=== PATIENT | female | born 1950 | race Caucasian/White ===

== ENCOUNTER → 2016-11-26 | Outpatient (CLI) | payer OTHER ==
--- NOTE | 2016-11-26 09:36 | MA ---
Screening Digital Mammogram With Tomosynthesis and iCAD Indication: Routine screening. Personal history of left breast DCIS. Technique: Standard digital CC projections were obtained. Digital breast tomosynthesis was performed in the MLO projection with reconstruction at 1.0 mm slice thickness. Composite MLO views were recons tructed. [facility]. Comparison: November 2015, November 2014, November 2013, and August 2011 Breast density: Type B. Findings: CAD was reviewed. The focal asymmetry with questionable architectural distortion has develo ped in the upper outer right breast 10 o'clock position on the tomosynthesis views. The asymmetry is equivocally more conspicuous on the 2D synthesized view. No correlate on the right CC view. The lumpe ctomy scar in the upper inner left breast is unchanged. Impression: New focal asymmetry versus dense superimposed fibroglandular tissue in upper outer right breast. BI-RADS 0: Needs additional imaging evaluation. Recommendation: Proceed with right breast ultrasound to optimally characterize. Comment: Patient notified of the findings and recommendations shortly after study completion. [facility] will send a result letter to the patient. Negative mammography should not preclude additional workup of a clinically suspicious finding. The patient's information is entered into a reminder system with a target due date for her next mammo gram.
--- NOTE | 2016-11-26 11:19 | US ---
Right Breast Ultrasound Indication: Focal asymmetry with questionable architectural distortion in upper outer right breast. History of left breast DCIS. Technique: The outer half of the right breast was scanned with a high-resolution linear transducer by the boat hoist operator helper and me. Correlation made with mammograms and targeted physical exam. Comparison: Tomosynthesis mammograms performed earlier today and right breast ultrasound dated 2013. Findings: Sonography of the upper outer right breast reveals normal bands of dense fibroglandular tis manuela. No mass or architectural distortion suspicious for malignancy. A tiny benign cyst at the 9 o'ira ck position 6 cm from the nipple measures 4 x 2 mm. Impression: Dense benign superimposed fibroglandular tissue in the upper outer right breast. No solid mass or architectural distortion suspicious for malignancy. BI-RADS 1: Negative findings. Recommendation: Resume routine bilateral mammographic screening in November 2016 unless otherwise cli nically indicated. The negative results and recommendations were discussed with the patient at time of study completion.
== END ==
LOC: FIMAGING 07:58
PROVIDERS: ATTEND Surgery
DX: Z12.31 Encounter for screening mammogram for malignant neoplasm of breast (principal); Z86.000 Personal history of in-situ neoplasm of breast
CPT/HCPCS: G0202

== ENCOUNTER 2017-09-09 16:06 | Emergency (ER) | payer OTHER ==
[2017-09-09 16:19] VITALS: PULSE 65
--- NOTE | 2017-09-09 16:36 | EDPHY ---
H & P Stated Complaint: Swelling RLE and pain in calf x 1 wk;no injury Time Seen by Provider: 09/09/17 16:35 Source: Patient Exam Limitations: No limitations - Personal History Current Tetanus Diphtheria and Acellular Pertussis (TDAP): Unsure - Medical/Surgical History Hx Diabetes: No Other PMH: breast CA L w/lumpectomy - Social History Smoking Status: Former smoker Constitutional: Initial Vital Signs Temperature (C) 37.2 C 09/09/17 16:15 Heart Rate 65 09/09/17 16:15 Respiratory Rate 16 09/09/17 16:15 Blood Pressure 150/100 H 09/09/17 16:15 O2 Sat (%) 97 09/09/17 16:15 O2 Delivery Mode Room Air Allergies/Adverse Reactions: adhesive Allergy (Verified 12/15/13 14:11) Sulfa (Sulfonamide Antibiotics) Allergy (Verified 12/15/13 14:11) Home Medications: Medication Instructions Recorded Escitalopram Oxalate [Lexapro] 10 mg PO 09/09/17 Levothyroxine [Synthroid 100 mcg 100 mcg PO DAILY06 09/09/17 (*)] Tamoxifen Citrate [Nolvadex 10 MG 10 mg PO 09/09/17 (*)] Zolpidem Tartrate [Ambien 5MG (*)] 5 mg PO HS 09/09/17 Medical Decision Making - Diagnostics Imaging Results: Imaging Impressions Extremity Venous Study 09/09/17 16:26 Impression: Single superficial calf vein thrombosis. Otherwise negative. Results called to Dr. Worley at 5:27 PM. Imaging: Discussed imaging studies w/ doubler operator Radiologist ED Course/Re-evaluation: CHIEF COMPLAINT: Left lower extremity pain and swelling HISTORY OF PRESENT ILLNESS: The patient is a 67-year-old female presenting with pain and swelling to her left lower extremity. She reports pain and swelling localized behind the left ankle that feels "like there is a knot". She was sitting for a prolonged period of time this weekend with a 3 hour car ride included. She denies chest pain or difficulty breathing. REVIEW OF SYSTEMS: A 10 point review of systems was performed and is negative with the exception of the elements mentioned in the history of present illness. PHYSICAL EXAM: HR, BP, O2 Sat, RR. Temp noted General Appearance: Alert, well hydrated, appropriate, and non-toxic appearing. Eyes: Pupils equal, round, reactive to light and accommodation, EOMI, no trauma , no injection. Throat: There is no erythema or exudates, no lesions, normal tonsils, mucus membranes moist. Neck: Supple, 2+ carotid upstroke, nontender, no lymphadenopathy. Respiratory: No retractions, no distress, no wheezes, and no accessory muscle use. Lungs are clear to auscultation bilaterally. Cardiovascular: Regular rate and rhythm, no murmurs, rubs, or gallops. Bilateral carotid, radial, dorsalis pedis, and posterior tibial pulses intact. Good capillary refill all extremities. Gastrointestinal: Abdomen is soft, nontender, non-distended, no masses, no rebound, no guarding, no peritoneal signs. Musculoskeletal: Normal active ROM of all extremities. Swelling and tenderness to left lower extremity, worse at posterior ankle. Neurological: Alert, appropriate, and interactive. The patient has normal DTRs and non-focal cranial nerves, motor, sensory, and cerebellar exam. Skin: No rashes, good turgor, no nodules on palpation. Past medical history: Breast cancer Past surgical history: Lumpectomy Family history: Noncontributory Social history: . Retired. DIAGNOSTICS/PROCEDURES/CRITICAL CARE TIME: US shows a single superficial calf vein thrombosis. DIFFERENTIAL DIAGNOSIS: The differential diagnosis for the patient's leg swelling included but was not limited to hypoalbuminemia, congestive heart failure, cor pulmonale, venous stasis, trauma, and DVT. MEDICAL DECISION MAKING: Patient presents with left lower extremity pain and swelling that developed after a prolonged period of sitting this weekend. She denies chest pain or shortness of breath. Plan for lower extremity doppler ultrasound to rule out DVT. US shows a single superficial calf vein thrombosis. I discussed findings with the patient. Anticoagulation is not necessary. I recommend warm compresses. The patient is safe to be discharged home. Departure - Departure Disposition: Home, Routine, Self-Care Clinical Impression: Superficial thrombophlebitis Qualifiers: Superficial thrombophlebitis-Involved body area: lower extremity Laterality: left Qualified Code(s): I80.02 - Phlebitis and thrombophlebitis of superficial vessels of left lower extremity Condition: Good Instructions: Superficial Thrombophlebitis (ED) Additional Instructions: Apply warm compresses to the lower extremity. I recommend Ibuprofen for pain. Follow up with your primary care physician as needed. Return to the Emergency Department with new or worsening symptoms. Referrals: Ramirez Woo MD [Primary Care Provider] - As per Instructions Report Scribed for: Justen Worley Report Scribed by: Marci Zelaya Date of Report: 09/09/17 Time of Report: 17:35
[2017-09-09 17:54] VITALS: BP 142/81; RESP 18; TEMP 98.4; O2SAT 98
== END 2017-09-09 17:51 | disposition home or self-care (01) ==
DX: I80.02 Phlebitis and thrombophlebitis of superficial vessels of left lower extremity (principal); Z85.3 Personal history of malignant neoplasm of breast; Z87.891 Personal history of nicotine dependence

== ENCOUNTER → 2017-11-27 | Outpatient (CLI) | payer OTHER | LOC: FIMAGING 08:20 | PROVIDERS: ATTEND Surgery | DX: Z12.31 Encounter for screening mammogram for malignant neoplasm of breast (principal); Z85.3 Personal history of malignant neoplasm of breast ==

== ENCOUNTER → 2018-11-28 | Outpatient (CLI) | payer OTHER | LOC: FIMAGING 07:33 | PROVIDERS: ATTEND Internal Medicine Hematology & Oncology | DX: Z12.31 Encounter for screening mammogram for malignant neoplasm of breast (principal); Z85.3 Personal history of malignant neoplasm of breast ==